=== PATIENT | male | born 1995 ===

== ENCOUNTER 2016-12-23 09:19 | Emergency (ER) | payer SELFPAY ==
[2016-12-23 10:29] LABS: Urine Bacteria Absent (Absent); Urine Bilirubin Negative (Negative); Urine Glucose Negative (Negative); Urine Nitrite Negative (Negative)
--- NOTE | 2016-12-23 10:57 | RAD ---
INDICATION: Testicular pain left greater than right. COMPARISON: There are no prior studies available for comparison. TECHNIQUE: Multiple real-time images of the testicles were obtained including color Doppler images and Doppler tracings. FINDINGS: The testicles are normal in size, shape and echogenicity. The right testicle measured 4.3 x 2.3 x 2.8 cm and the left testicle measured 4.2 x 1.9 x 3.1 cm. No intratesticular mass is seen. There is symmetric vascular flow within both testicles. There is very mild bilateral testicular microlithiasis. There is a 0.7 x 0.8 x 1.1 cm right epididymal cyst and a 2.7 x 1.1 x 1.6 cm left epididymal cyst. IMPRESSION: 1. NO EVIDENCE FOR TESTICULAR TORSION OR EPIDIDYMITIS. 2. BILATERAL EPIDIDYMAL CYSTS. 3. MILD BILATERAL TESTICULAR MICROLITHIASIS.
[2016-12-23 11:26] LABS: Hematocrit 41 % (42-52); Hemoglobin 13.8 g/dl (14.0-18.0); Mean Corpuscular HGB Conc 34 g/dl (31-36); Mean Corpuscular Hemoglobin 27 pg (27-31); Mean Corpuscular Volume 81 fL (80-94); Mean Platelet Volume 9 um3 (7.4-10.4); Red Blood Count 5.04 10^6/ul (4.0-5.4); Red Cell Distribution Width 14 % (10.5-15); White Blood Count 7.5 10^3/ul (3.5-10.8)
[2016-12-23 11:42] LABS: Albumin 4.6 g/dL (3.2-5.2); BUN/Creatinine Ratio 14.3 (8-20); Calcium 9.5 mg/dL (8.6-10.3); EGFR African American 183.1 (>60); EGFR Non-African American 142.4 (>60); Potassium 3.9 mmol/L (3.5-5.0); Total Protein 7.6 g/dL (6.4-8.9)
[2016-12-23 12:30] VITALS: BP 110/61
--- NOTE | 2016-12-23 12:30 | ED ---
Khoa Thompson Billy, scribed for Chris Lin MD on 12/23/16 at 0949 . GI/ HPI - HPI Summary HPI Summary: Patient is a 21 year-old male coming to [facility] for evaluation of several months of left testicular pain. Pain severity is 3/10 now, but will escalate to 7/10 at times. He saw a physician in [facility] several months ago and was given antibiotics for 10 days to treat epididymitis, with improvement. However, the pain has returned and worsened in the last 2-3 months. It is unrelated to any heavy lifting, and he denies any trauma. Denies fevers, chills, or penile discharge. He has not been sexually active for the last 3 years, and has generally been healthy otherwise. - History of Current Complaint Chief Complaint: EDUrogenitalProblems Time Seen by Provider: 12/23/16 09:37 Stated Complaint: GROIN PAIN Hx Obtained From: Patient Onset/Duration: Started Weeks Ago, Atraumatic Timing: Constant Severity: Moderate Current Severity: Moderate Pain Intensity: 3 Additional Locations for Males: Testicles Associated Signs and Symptoms: Positive: Negative. Negative: Discharge, Fever, Chills PMH/Surg Hx/FS Hx/Imm Hx Endocrine/Hematology History: Denies: Hx Diabetes Cardiovascular History: Denies: Hx Hypertension Infectious Disease History: No Infectious Disease History: Denies: Traveled Outside the [place] in Last 30 Days - Family History Known Family History: Negative: Cardiac Disease, Hypertension, Diabetes - Social History Alcohol Use: None Hx Substance Use: No Substance Use Type: Reports: None Hx Tobacco Use: No Smoking Status (MU): Never Smoked Tobacco Review of Systems Negative: Fever, Chills Positive: see HPI All Other Systems Reviewed And Are Negative: Yes Physical Exam - Summary Physical Exam Summary: VITAL SIGNS: Reviewed. GENERAL: Patient is a well developed and nourished male who is lying comfortable in the stretcher. Patient is not in any acute respiratory distress. HEAD AND FACE: Normocephalic EYES: PERRLA, EOMI x 2. EARS: Hearing grossly intact. MOUTH: Oropharynx within normal limits. NECK: Supple, trachea is midline, no adenopathy, no JVD, no carotid bruit. CHEST: Symmetric, no tenderness at palpation LUNGS: Clear to auscultation bilaterally. No wheezing or crackles. CVS: Regular rate and rhythm, S1 and S2 present, no murmurs or gallops appreciated. ABDOMEN: Soft, non-tender. Bowel sounds are normal. No abdominal abnormal pulsations. PELVIC: Uncircumcised penis. There is a small mass on the upper pole of the left testicle. Good cremasteric reflex. No inguinal hernias visualized. Good femoral pulses. No rash, ecchymosis, or hematoma. EXTREMITIES: Full ROM in all major joints, no edema, no cyanosis or clubbing. NEURO: Alert and oriented x 3. No acute neurological deficits. Speech is normal and follows commands. SKIN: Dry and warm Triage Information Reviewed: Yes Vital Signs On Initial Exam: Initial Vitals Temp Pulse Resp BP Pulse Ox 97.7 F 86 20 131/68 99 12/23/16 09:21 12/23/16 09:21 12/23/16 09:21 12/23/16 09:21 12/23/16 09:21 Vital Signs Reviewed: Yes Diagnostics - Vital Signs Vital Signs Temp Pulse Resp BP Pulse Ox 12/23/16 09:21 97.7 F 86 20 131/68 99 - Laboratory Lab Results: Lab Results 12/23/16 12/23/16 12/23/16 Range/Units 10:00 11:15 11:15 WBC 7.5 (3.5-10.8) 10^3/ul RBC 5.04 (4.0-5.4) 10^6/ul Hgb 13.8 L (14.0-18.0) g/dl Hct 41 L (42-52) % MCV 81 (80-94) fL MCH 27 (27-31) pg MCHC 34 (31-36) g/dl RDW 14 (10.5-15) % Plt Count 242 (150-450) 10^3/ul MPV 9 (7.4-10.4) um3 Neut % (Auto) 80.3 (38-83) % Lymph % (Auto) 11.5 L (25-47) % [place] % (Auto) 6.9 (1-9) % Eos % (Auto) 0.6 (0-6) % Baso % (Auto) 0.7 (0-2) % Absolute Neuts (auto) 6.0 (1.5-7.7) 10^3/ul Absolute Lymphs (auto) 0.9 L (1.0-4.8) 10^3/ul Absolute Monos (auto) 0.5 (0-0.8) 10^3/ul Absolute Eos (auto) 0 (0-0.6) 10^3/ul Absolute Basos (auto) 0.1 (0-0.2) 10^3/ul Absolute Nucleated RBC 0 10^3/ul Nucleated RBC % 0 Sodium 134 (133-145) mmol/L Potassium 3.9 (3.5-5.0) mmol/L Chloride 102 (101-111) mmol/L Carbon Dioxide 25 (22-32) mmol/L Anion Gap 7 (2-11) mmol/L BUN 10 (6-24) mg/dL Creatinine 0.70 (0.67-1.17) mg/dL Est GFR ( Amer) 183.1 (>60) Est GFR (Non-Af Amer) 142.4 (>60) BUN/Creatinine Ratio 14.3 (8-20) Glucose 104 H (70-100) mg/dL Calcium 9.5 (8.6-10.3) mg/dL Total Bilirubin 1.00 (0.2-1.0) mg/dL AST 35 (13-39) U/L ALT 50 (7-52) U/L Alkaline Phosphatase 118 H (34-104) U/L Total Protein 7.6 (6.4-8.9) g/dL Albumin 4.6 (3.2-5.2) g/dL Globulin 3.0 (2-4) g/dL Albumin/Globulin Ratio 1.5 (1-3) Urine Color Yellow Urine Appearance Clear Urine pH 5.0 (5-9) Ur Specific [place] 1.015 (1.010-1.030) Urine Protein Negative (Negative) Urine Ketones Negative (Negative) Urine Blood 1+ H (Negative) Urine Nitrate Negative (Negative) Urine Bilirubin Negative (Negative) Urine Urobilinogen Negative (Negative) Ur Leukocyte Esterase Negative (Negative) Urine WBC (Auto) Absent (Absent) Urine RBC (Auto) Trace(0-2/hpf) (Absent) Urine Bacteria Absent (Absent) Urine Glucose Negative (Negative) Result Diagrams: 12/23/16 11:15 12/23/16 11:15 Lab Statement: Any lab studies that have been ordered have been reviewed, and results considered in the medical decision making process. - Ultrasound No standard instances Ultrasound Interpretation Completed By: Radiologist - TESTICULAR ULTRASOUND: 1. NO EVIDENCE FOR TESTICULAR TORSION OR EPIDIDYMITIS. 2. BILATERAL EPIDIDYMAL CYSTS. 3. MILD BILATERAL TESTICULAR MICROLITHIASIS. Re-Evaluation - Re-Evaluation First Eval Re-Evaluation Time: 11:47 Change: Improved Comment: Labs and imaging reviewed. GIGU Course/Dx - Course Assessment/Plan: Patient is a 21 year-old male coming to [facility] for evaluation of several months of left testicular pain. Pain severity is 3/10 now, but will escalate to 7/10 at times. He saw a physician in [facility] several months ago and was given antibiotics for 10 days to treat epididymitis, with improvement. However, the pain has returned and worsened in the last 2-3 months. It is unrelated to any heavy lifting, and he denies any trauma. Denies fevers, chills, or penile discharge. He has not been sexually active for the last 3 years, and has generally been healthy otherwise. Test results of the testicular US shows no evidence for testicular torsion or epididymitis, bilateral epididymal cysts, and mild bilateral testicular microlithiasis. UA is WNL. CBC and CMP WNL. At this point, the patient was given Ibuprofen for pain, and he will be referred for urology consult. He was educated in portuguese that it is very important to f/ u with Urology. He understands and agrees. Since the patient has no source of infection or testicular torsion, he will be discharged home to follow up with urology in the next 2-3 days. Patient is hemodynamically stable, A&Ox3. discussed all the findings and test results with the patient. Patient was instructed to return to the emergency room immediately if any of the symptoms return or worsens. Plan of care was discussed with the patient and understands and agrees. All questions were answered at patient satisfaction. There were no further complaints or concerns. Lung exam before discharge: CTA B/L. Good air exchange. No wheezing or crackles heard. CVS: S1 and S2 present. No murmurs appreciated. Patient is alert and oriented x 3. Patient is hemodynamically stable. 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 CAMARA. The documentation as recorded by the Khoa samuel Billy accurately reflects the service I personally performed and the decisions made by , Chris Lin MD.
== END 2016-12-23 12:30 | disposition home or self-care (01) ==
LOC: ED 09:19
DX: N44.2 Benign cyst of testis (principal); N50.819 Testicular pain, unspecified
CPT/HCPCS: 36415; 76870; 80053; 81003; 81015; 85025; 99282